=== PATIENT | male | born 2005 | race African-American/Black ===

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

== ENCOUNTER 2024-12-30 00:30 | Emergency (ER) | payer SELFPAY, OTHER ==
--- OUTSIDE RECORDS SUMMARY | 2024-12-30 00:40 | XMS REPORT | Continuity of Care Document ---
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 Name Role Phone INOCENCIO_Jalen Attending Clinician Unavailable Lab, Adc Fam Pob I Attending Clinician Unavailab Jojo Wynn Attending Clinician INOCENCIO_Jalen Admitting Clinician Unavailable Payers Payer Name Policy Type Policy Number Effective Date Expirati on Date Source Allergies, Adverse Reactions, Alerts Allergy Name Allergy Type Status Severity Reaction(s) Onset Date Inactive Date Treating Clinician Comments Source NO KNOWN ALLERGIE S Drug Class Active [facility] Social History Social Habit Start Date Stop Date Quantity Comments Source Sex Assigned At [facility] Smoking Status Start Date Stop Date Source Unknown if ever smoked [facility] Encounters Start Date/Time End Date/Time Encounter Type Admission Type Attending Clinicians Care Facility Care Department Encounter ID Source 2023-12-08 00:00:00 2023-12-08 00:00:00 Outpatient IESHASON_C [facility] [id number] 2020-05-07 13:02:17 2020-05-07 13:18:47 Laboratory Only Lab, Adc Fam Pob I Jojo Crow [facility] [id number] [facility] 2020-05-07 13:00:00 2020-05-07 13:00:00 Outpatient R [facility] [id number] [facility] 2020-05-07 09:00:00 2020-05-07 09:00:00 Outpatient R [facility] [id number] [facility]
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
[2024-12-30 01:59] VITALS: BP 114/70; TEMP 98.3; O2SAT 99
== END 2024-12-30 01:27 | disposition home or self-care (01) ==
LOC: ER 00:30
DX: S00.81XA Abrasion of other part of head, initial encounter (principal); S73.101A Unspecified sprain of right hip, initial encounter
CPT/HCPCS: 99284

== ENCOUNTER 2025-01-17 21:37 | Emergency (ER) | payer OTHER ==
--- OUTSIDE RECORDS SUMMARY | 2025-01-17 21:39 | XMS REPORT | Continuity of Care Document ---
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 Role Phone INOCENCIO_Jalen Attending Clinician Unavailable Lab, Adc Fam Pob I Attending Clinician Unavailab Jojo Wynn Attending Clinician INOCENCIO_Jalen Admitting Clinician Unavailable Payers Payer Name Policy Type Policy Number Effective Date Expirati on Date Source Allergies, Adverse Reactions, Alerts Allergy Name Allergy Type Status Severity Reaction(s) Onset Date Inactive Date Treating Clinician Comments Source NO KNOWN ALLERGIE S Drug Class Active [facility] Social History Social Habit Start Date Stop Date Quantity Comments Source Sex Assigned At [facility] Smoking Status Start Date Stop Date Source Unknown if ever smoked [facility] Encounters Start Date/Time End Date/Time Encounter Type Admission Type Attending Clinicians Care Facility Care Department Encounter ID Source 2023-12-08 00:00:00 2023-12-08 00:00:00 Outpatient [facility]HASON[facility]C [facility] [id number] 2020-05-07 13:02:17 2020-05-07 13:18:47 Laboratory Only Lab, Adc Fam Pob I Jojo [facility] [id number] [facility] 2020-05-07 13:00:00 2020-05-07 13:00:00 Outpatient R [facility] [id number] [facility] 2020-05-07 09:00:00 2020-05-07 09:00:00 Outpatient R [facility] [id number] [facility]
[2025-01-17] MEDS ORDERED: HYDROCODONE/APAP 5/325 MG TAB ONE (23:47)
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
[2025-01-18 03:01] VITALS: BP 124/68; TEMP 98.3; O2SAT 98
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
== END 2025-01-18 01:37 | disposition home or self-care (01) ==
LOC: ER 21:37
DX: S00.83XA Contusion of other part of head, initial encounter (principal); S60.812A Abrasion of left wrist, initial encounter; S60.811A Abrasion of right wrist, initial encounter; S90.512A Abrasion, left ankle, initial encounter; S90.511A Abrasion, right ankle, initial encounter; Y04.2XXA Assault by strike against or bumped into by another person, initial encounter
CPT/HCPCS: 70450; 72125; 99284